=== PATIENT | male | born 1995 | race Hispanic/Latino ===

== ENCOUNTER 2018-08-02 02:59 | Emergency (ER) | payer MEDICARE, OTHER ==
--- NOTE | 2018-08-02 08:51 | RAD ---
RIGHT KNEE THREE VIEWS: INDICATIONS: Joint pain. FINDINGS: There is edema of the right ankle. The mortise is intact. No discrete fracture. Mild enthesophyte formation is seen at the plantar aspect of the calcaneus. There is a subtle, curvilinear density adjacent the medial malleolus. IMPRESSION: 1. Soft tissue swelling of the ankle. 2. Subtle, curvilinear, thin, linear density adjacent to the medial malleolus. This could relate to a periosteal avulsive injury in the correct clinical context. Recommend clinical correlation and, a s necessary, imaging followup may be obtained. POS: TAMARA
== END 2018-08-02 03:32 | disposition home or self-care (01) ==
LOC: ERS 02:59
DX: S93.401A Sprain of unspecified ligament of right ankle, initial encounter (principal); I10 Essential (primary) hypertension; F20.9 Schizophrenia, unspecified; F17.210 Nicotine dependence, cigarettes, uncomplicated; Z79.899 Other long term (current) drug therapy; Z79.82 Long term (current) use of aspirin; X58.XXXA Exposure to other specified factors, initial encounter

== ENCOUNTER 2018-08-02 07:08 | Emergency (ER) | payer MEDICARE, OTHER ==
[2018-08-02] MEDS ORDERED: Ketorolac Tromethamine 60 MG/2 ML VIAL ONE (07:58)
== END 2018-08-02 08:17 | disposition home or self-care (01) ==
LOC: ERS 07:08
DX: M25.571 Pain in right ankle and joints of right foot (principal); I10 Essential (primary) hypertension; F20.9 Schizophrenia, unspecified; F17.210 Nicotine dependence, cigarettes, uncomplicated
CPT/HCPCS: 96372; J1885

== ENCOUNTER 2018-08-24 08:59 | Emergency (ER) | payer MEDICARE, MEDICAID ==
--- NOTE | 2018-08-24 11:36 | RAD ---
RIGHTankle 3 views INDICATION: Right ankle pain COMPARISON: Right ankle radiographs dated August 03, 1999 FINDINGS: Bones: Intact. Ankle mortise: Symmetric. Talar Dome: Intact. Subtalar joint: Normal. Visualized hindfoot: Normal. Periarticular soft tissues: There is persistent moderate circumferential soft tissue swelling surroun ding the right ankle IMPRESSION: 1. No acute fracture or subluxation demonstrated.
== END 2018-08-24 11:41 | disposition home or self-care (01) ==
LOC: ERS 08:59
DX: S93.402A Sprain of unspecified ligament of left ankle, initial encounter (principal); F20.9 Schizophrenia, unspecified; I10 Essential (primary) hypertension; F17.210 Nicotine dependence, cigarettes, uncomplicated; X50.1XXA Overexertion from prolonged static or awkward postures, initial encounter

== ENCOUNTER 2018-12-01 19:49 | Emergency (ER) | payer MEDICARE, MEDICAID ==
[2018-12-01 20:18] LABS: #Basophils 0.1 thou/uL (0.0-0.2); #Eosinphils 0.4 thou/uL (0.0-0.7); #Lymphocytes 4.4 thou/uL (1.20-3.40); #Monocytes 1.1 thou/uL (0.11-0.59); #Neutrophils 6.6 thou/uL (1.40-6.50); %Basophils 1.1 % (0.0-1.0); %Eosinophils 3.4 % (0.0-10.0); %Monocytes 8.6 % (0.0-10.0); Hemoglobin 16.2 g/dL (14.0-18.0); Mean Corpuscular Hemoglobin 31.6 pg (27.0-31.0); Mean Corpuscular Volume 90.2 fL (78.0-98.0); Mean Platelet Volume 7.4 fL (7.4-10.4); Platelet Count 253 thou/uL (130-400); RBC Distribution Width 11.8 % (11.5-14.5); Red Blood Cell (RBC) Count 5.12 mill/uL (4.70-6.10); White Blood Cell (WBC) Count 12.7 thou/uL (4.8-10.8)
[2018-12-01 20:31] LABS: Bacteria/HPF None Seen HPF (None Seen); Bilirubin Negative (Negative); Blood, Urine Negative (Negative); Clarity Clear (Clear); Glucose, Urine (Dipstick) Normal (Negative); Leukocyte Negative Leu/uL (Negative); Nitrite Negative (Negative); Protein, Urine (Dipstick) 30 mg/dL (Neg-Trace); RBC/HPF 0-3 HPF (0-3); Squamous Epithelial None Seen HPF (0-3); WBC/HPF 0-3 HPF (0-3)
[2018-12-01 20:39] LABS: ALT (SGPT) 19 U/L (8-55); AST (SGOT) 23 U/L (5-34); Acetaminophen Less than 6.0 mcg/mL (10.0-30.0); Albumin 5.1 g/dL (3.5-5.0); Alcohol Less than 10 mg/dL (Less than 10); Alkaline Phosphatase 111 U/L (40-150); Anion Gap 17 mmol/L (10-20); BUN (Urea Nitrogen) 18 mg/dL (8.9-20.6); Bilirubin, Total 0.4 mg/dL (0.2-1.2); CK (CPK) 725 U/L (30-200); Calc. Creatinine Clearance 0 mL/min (70-130); Calcium 10.3 mg/dL (7.8-10.44); Carbon Dioxide 26 mmol/L (22-29); Chloride 101 mmol/L (98-107); Estimated GFR-MDRD 79; Globulin 2.9 g/dL (2.4-3.5); Glucose 86 mg/dL (70-105); Potassium 3.6 mmol/L (3.5-5.1); Salicylate Less than 8.0 mg/dL (15.0-30.0); Sodium 140 mmol/L (136-145)
[2018-12-01 20:42] LABS: Amphetamine Not Detected (NotDetected); Barbiturates Screen Not Detected (NotDetected); Benzodiazepine Screen Not Detected (NotDetected); Cocaine Metabolite Screen Not Detected (NotDetected); Medtox Control Line Valid? VALID (VALID); Medtox Reader # READER 1; Methadone Not Detected (NotDetected); Methamphetamine Not Detected (NotDetected); Opiate Screen Not Detected (NotDetected); Oxycodone Screen Not Detected (NotDetected); Phencyclidine (PCP) Not Detected (NotDetected); THC/Cannabinoid Screen Not Detected (NotDetected); Tricyclic Screen Detected (NotDetected)
[2018-12-01] MEDS ORDERED: traZODone HCl 50 MG TAB ONE (22:04)
[2018-12-01] MEDS ORDERED: Nicotine 14 MG PATCH ONE (22:04)
== END 2018-12-02 03:26 ==
LOC: ERS 19:49
DX: F22 Delusional disorders (principal); I10 Essential (primary) hypertension; F17.210 Nicotine dependence, cigarettes, uncomplicated; F20.9 Schizophrenia, unspecified
CPT/HCPCS: 36415; 80053; 80306; 80307; 81003; 81015; 82550; 85025; 93005

== ENCOUNTER 2019-02-18 21:05 | Emergency (ER) | payer MEDICARE, OTHER ==
--- NOTE | 2019-02-18 21:47 | RAD ---
EXAM: 4 views of the left knee HISTORY: Knee pain COMPARISON: None FINDINGS: No knee effusion is seen. There is no evidence of acute fracture or dislocation. No signifi cant degenerative changes are seen. No soft tissue swelling is present. IMPRESSION: No evidence of acute osseous abnormality.
[2019-02-18] MEDS ORDERED: Acetaminophen 500 MG TAB ONE ×2 (21:59)
== END 2019-02-18 22:15 | disposition home or self-care (01) ==
LOC: ERS 21:05
DX: M25.562 Pain in left knee (principal); F17.210 Nicotine dependence, cigarettes, uncomplicated; F20.9 Schizophrenia, unspecified; I10 Essential (primary) hypertension; Z71.6 Tobacco abuse counseling; Z79.899 Other long term (current) drug therapy; W09.8XXA Fall on or from other playground equipment, initial encounter; Y99.8 Other external cause status; Y93.51 Activity, roller skating (inline) and skateboarding
CPT/HCPCS: 99406

== ENCOUNTER 2020-07-08 16:45 | Emergency (ER) | payer MEDICARE, OTHER | END 2020-07-08 19:20 | disposition home or self-care (01) | LOC: ERS 16:45 | DX: S90.01XA Contusion of right ankle, initial encounter (principal); S90.811A Abrasion, right foot, initial encounter; I10 Essential (primary) hypertension; F17.210 Nicotine dependence, cigarettes, uncomplicated; Z79.899 Other long term (current) drug therapy; W22.8XXA Striking against or struck by other objects, initial encounter ==

== ENCOUNTER 2022-07-02 17:55 | Emergency (ER) | payer MEDICARE, OTHER ==
[2022-07-02] MEDS ORDERED: Acetaminophen 500 MG TAB ONE (18:43)
[2022-07-02] MEDS ORDERED: Ibuprofen 800 MG TAB ONE (18:43)
[2022-07-02] MEDS ORDERED: Morphine 4 MG/ML VIAL ONE (19:41)
== END 2022-07-02 21:33 | disposition home or self-care (01) ==
LOC: ERS 17:55
DX: S83.91XA Sprain of unspecified site of right knee, initial encounter (principal); F17.210 Nicotine dependence, cigarettes, uncomplicated; Y93.51 Activity, roller skating (inline) and skateboarding
CPT/HCPCS: 96372; J2270